=== PATIENT | female | born 1990 | race African-American/Black ===

== ENCOUNTER 2022-08-07 10:04 | Emergency (ER) | payer MEDICAID, SELFPAY ==
--- NOTE | ~2022-08-07 | US_ITS ---
EXAMINATION: US OB <=14 wk fetus w TV DATE: 08/07/2022 14:11 INDICATION: Abdominal cramping during the 11 week of TECHNIQUE: Real-time pelvic ultrasound utilizing both a transvaginal and transabdominal probe was pe rformed. The interpreting radiologist was not present for the study. COMPARISON: 08/04/2022 FINDINGS: The anteverted uterus measures 12.4 x 8.1 x 8.8 cm. There is an intrauterine gestational sac with me an sac diameter 3.0 cm. A single pole is identified. The crown rump length measures 1.2 cm, whi ch correlates with an estimated gestational age of 7 weeks and 3 days. heart motion is not iden tified on either cine grayscale imaging or M-mode Doppler. There are couple anechoic nabothian cysts at the cervix the larger measuring 9 mm. The right ovary measures 4.1 x 2.5 x 3.0 with vascular flow in the right ovary visible on color Doppl er. The left ovary not visualized. There is no free fluid in the pelvis. IMPRESSION: 1. Single intrauterine gestational sac with 1.2 cm pole without discernible heart motion which would be consistent with demise. 2. [place]-rump length corresponding to estimated gestational age by ultrasound of 7 weeks 3 day(s) +/- 4 day(s) with ultrasound estimated date of delivery (JU) of 03/20/2023. Reviewed, dictated and finalized at location A. IMPRESSION: 1. Single intrauterine gestational sac with 1.2 cm pole without discernib le heart motion which would be consistent with demise. 2. [place]-rump length corresponding to estimated gestational age by ultrasound o f 7 weeks 3 day(s) +/- 4 day(s) with ultrasound estimated date of delivery (JU ) of 03/20/2023.
[2022-08-07 10:11] VITALS: BP 142/73; PULSE 86; RESP 18; TEMP 36.8; O2SAT 100
[2022-08-07 10:26] LABS: Basophils Percent Auto 0.4 % (0.2-1.2); Eosinophils Absolute Auto 0.1 K/mm3 (0-0.3); Eosinophils Percent Auto 1.3 % (0-4.4); Hematocrit 35.4 % (37.0-47.0); Hemoglobin 11.6 g/dL (12.0-15.0); Immature Granulocyte Absolute 0.03 K/mm3 (0.00-0.031); Immature Granulocyte Percent A 0.3 % (0-0.5); Lymphocytes Absolute Auto 2.65 K/mm3 (0.9-3.2); Lymphocytes Percent Auto 25.6 % (18.3-44.2); Mean Corpuscular HGB Conc 32.8 g/dl (32-36); Mean Corpuscular Hemoglobin 28.8 pg (26-34); Mean Corpuscular Volume 87.8 fl (80-100); Mean Platelet Volume 9.7 fl (7.4-10.4); Monocytes Absolute Auto 0.7 K/mm3 (0.1-0.6); Monocytes Percent Auto 6.3 % (2.6-8.5); Neutrophils Absolute Auto 6.9 K/mm3 (1.3-6.7); Neutrophils Percent Auto 66.1 % (45.5-73.1); Platelet Count Result 214 k/mm3 (150-375); Red Blood Count 4.03 M/mm3 (4.2-5.4); Red Cell Distribution Width 13.3 % (11.5-14.5); White Blood Count 10.4 K/mm3 (4.5-10.0)
[2022-08-07 10:29] LABS: Appearance Urine Cloudy (Clear); Bacteria Urine 1+ /hpf; Bilirubin Urine Negative (Negative); Blood Urine Negative (Negative); Color Urine Yellow (Yellow); Glucose Urine UA Negative (Negative); Ketones Urine Trace mg/dL (Negative); Leukocyte Esterase Ur 1+ LEU/UL (Negative); Nitrate Urine Negative (Negative); Non Pathogenic Casts 0-2; Protein Urine Negative (Negative); RBC Urine 0-2 /hpf (0-2); Specific Grav Ur 1.026 (1.001-1.035); Squamous Epithelial Cell Urine Many /hpf (Few); Urobilinogen Urine 0.2 mg/dL (<2.0)
[2022-08-07 10:55] LABS: Add Urine Microscopic? YES
--- NOTE | 2022-08-07 11:41 | PC.NURSE ---
pt to room 20 with c/o mid abd pain that radiates to lower abd. has been having waves of pain described as small contractions. pt states she has been on google and wants it taken out of her if its not alive. pt made aware of hormone level and that we have to prove viability before proceeding with care. pt denies any vaginal discharge or bleeding. was treated for trich and chylmadia 2 weeks ago and hasnt been sexually active since.
--- NOTE | 2022-08-07 12:18 | PC.NURSE ---
unable to dopple heart tones.
--- NOTE | 2022-08-07 13:22 | ED.ABDPAIN ---
HPI - Abdominal Pain General Chief Complaint: Abdominal Pain Stated Complaint: abdominal crampinp, no bleeding, 11 weeks preg Time Seen by Provider: 08/07/22 12:03 History of Present Illness HPI narrative: Patient is a 32-year-old female G4, P3 at approximately 11 weeks presenting with abdominal cramping. Patient states that for the last 3 days she has had persistent lower abdominal cramping. States that she feels she is no longer . She denies vaginal bleeding or discharge. No dysuria, hematuria. States that she has been nauseated but no increased vomiting. No chest pain, shortness of breath, cough, diarrhea, leg swelling. Patient has not had an ultrasound for this yet. Related Data Allergies Allergy/AdvReac Type Severity Reaction Status Date / Time No Known Allergies Allergy Verified 08/08/22 08:58 Review of Systems Review of Systems: All systems reviewed & are unremarkable except as noted in HPI and below PMFSH Past Medical History Medical History Suppression of menses Surgical History Surgical History H/O wisdom tooth extraction History of carpal tunnel release of both wrists Family History Family History Mother Diabetes mellitus Hypertension Social History Social History Smoking status: Never smoker Alcohol intake: never Substance use: current Substance use type: marijuana Other substance usage details: NOT RECENTLY Living arrangements: [facility] Additional living arrangements comments: PT CURRENTLY LIVING IN A DETENTION - WILL BE RETURNING THERE AFTER SURGERY Occupation/Education: occupation Gender identity (if verbalized by the patient): Female Sexual Orientation (if Verbalized by the Patient): Straight or Heterosexual Spiritual care concerns: No Exam Narrative: GENERAL: Well-appearing, well-nourished, and in no acute distress. HEAD: Normocephalic, atraumatic. EYES: PERRLA and EOMI. ENT: Nares clear, no rhinorrhea or epistaxis. Mucous membranes moist. NECK: Supple. CHEST: Clear to auscultation. No respiratory distress. HEART: Regular rate and rhythm ABDOMEN: Soft, + suprapubic tenderness, no guarding or rebound EXTREMITIES: Normal range of motion. No edema. SKIN: Warm, dry, no rash. NEURO: No focal deficits. Alert and oriented x3. PSYCH: Normal mood and affect. Course Vital Signs Vital signs: Vital Signs Temperature 98.3 F 08/07/22 10:11 Pulse Rate 86 08/07/22 10:11 Respiratory Rate 18 08/07/22 10:11 Blood Pressure 142/73 H 08/07/22 10:11 Pulse Oximetry 100 08/07/22 10:11 Oxygen Delivery Room Air 08/07/22 10:11 Temperature 98.3 F 08/07/22 10:11 Pulse Rate 86 08/07/22 10:11 Respiratory Rate 18 08/07/22 10:11 Blood Pressure 142/73 H 08/07/22 10:11 Pulse Oximetry 100 08/07/22 10:11 Oxygen Delivery Room Air 08/07/22 10:11 MDM - Abdominal Pain MDM Narrative Medical decision making narrative: Patient is a 32-year-old female G4, P3 at approximately 11 weeks gestation presenting with abdominal cramping. Exam remarkable for the above. Blood work with mild leukocytosis and anemia. Beta hCG is appropriately elevated at 18,000. Plan for pelvic ultrasound. Pelvic ultrasound shows a gestational sac with a small pole. It is measuring approximately 7 weeks gestation. There is no discernible cardiac activity consistent with a missed . Patient left AMA from the department prior to discussion of these results. Differential Diagnosis Differential diagnosis: Likely abdominal pain, constipation and other (missed ) Lab Data 08/07/22 10:18 Labs: Lab Results 08/07/22 08/07/22 Range/Units 10:17 10:18 WBC 10.4 H (4.5-10.0) K/mm3 RBC 4.03 L
--- NOTE | 2022-08-07 14:45 | PC.NURSE ---
ultrasound to bedside for additional films.
--- NOTE | 2022-08-07 14:50 | PC.NURSE ---
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 asking for discharge papers. dr. schwartz aware. will speak with patient. waiting radiologist reading.
--- NOTE | 2022-08-07 15:00 | PC.NURSE ---
pt left ama without signing paperwork.
== END 2022-08-07 15:00 | disposition left against medical advice (07) ==
PROVIDERS: Emergency Medicine; Emergency Provider Emergency Medicine
DX: O02.1 Missed abortion (principal)
CPT/HCPCS: 36415; 76801; 76817; 81001; 84702; 85025; 85461; 86850; 86900; 86901; 87086; 99284

== ENCOUNTER 2022-08-15 03:02 | Day surgery (SDC) | payer OTHER, SELFPAY ==
[2022-08-08 08:59] VITALS: BMI 48.0
--- NOTE | 2022-08-08 09:03 | PC.NURSE ---
Report to the Outpatient Waiting Room, entrance under the green pavilion located off [facility], at time 0900 on date 08/15/22. Planned Procedure Time: 1100. Time changes happen often and if your time is changed the preop area will call you the afternoon before. - You and your visitor will be asked to self-screen and do not enter if you have any COVID symptoms. - A mask is optional within the hospital at this time. Patients may have clear liquids (water, carbonated beverages, clear teas, apple juice) until 3 hours prior to surgery with a maximum of 20 ounces. - No food from midnight until time of surgery Take the following medications with a SIP of water the morning of surgery: SERTRALINE DO NOT STOP ANY OF YOUR OTHER PRESCRIPTION MEDICATIONS PRIOR TO SURGERY ?EXCEPT THE FOLLOWING Medications to discontinue per physician: N/A Date to take last dose: N/A Please no make-up, nail hungarian, hairspray, perfume, deodorant, or body powder the day of surgery. No jewelry (including any body piercings) or valuables the day of surgery, leave them at home. Please take a shower or bath the night before, or the morning of, surgery with an antibacterial soap. Wear comfortable, loose fitting clothing. - Jewelry must be removed prior to entering the operating room. Rings and piercings that are not removed may be cut off. - The hospital will not accept responsibility for valuables. - Please leave all valuables, including medications, at home the day of surgery. If you are going home after surgery, a licensed regional otr company driver must drive you home. - NO public transportation without another adult if you receive anesthesia. - We recommend that an adult stay with you for 24 hours following discharge. - We also recommend that you do not drive, make important decision, drink alcoholic beverages, or take any drugs that were not prescribed by your health care provider for at least 24 hours after your discharge time. Follow any additional instructions given to you from your surgeon. If you or anyone in your household have experienced Covid symptoms in the past week, please notify your surgeon or the nurse liaison at the phone number below for possible testing. Telephone instructions given to PT - HEAVEN HEDRICK and asked if any additional questions and then verbalized understanding. Patient advised to call surgeon office or pre surgery nurse liaison [phone] if any additional questions.
--- NOTE | 2022-08-14 11:54 | PM.IMHP ---
H&P: HPI History of Present Illness Date/Time: 08/14/22 11:54 Chief Complaint: spontaneous missed Narrative: 32-year-old who presents for suction D&C for missed . Patient presented to the emergency room with complaints of pelvic pain and cramping. Patient had a pelvic ultrasound that showed intrauterine with no cardiac activity. Patient should have been 11 weeks by LMP and coronal length with measurements 7 weeks. Patient elected for surgical management Review of Systems Review of Systems: All systems reviewed & are unremarkable except as noted in HPI and below PMFSH Past Medical History Medical History Suppression of menses Surgical History Surgical History H/O wisdom tooth extraction History of carpal tunnel release of both wrists Family History Family History Mother Diabetes mellitus Hypertension Social History Social History Smoking status: Never smoker Alcohol intake: never Substance use: current Substance use type: marijuana Other substance usage details: NOT RECENTLY Living arrangements: snf Additional living arrangements comments: PT CURRENTLY LIVING IN A SNF - WILL BE RETURNING THERE AFTER SURGERY Occupation/Education: occupation Gender identity (if verbalized by the patient): Female Sexual Orientation (if Verbalized by the Patient): Straight or Heterosexual Spiritual care concerns: No Meds Home Medications and Allergies Home Medications Medication Instructions Recorded Confirmed Type sertraline 100 mg tablet 100 mg PO DAILY #30 tabs 07/31/22 08/08/22 Rx Allergies Allergy/AdvReac Type Severity Reaction Status Date / Time No Known Allergies Allergy Verified 08/08/22 08:58 Exam Const: General: comfortable and no acute distress Resp: Effort & Inspection: normal respiratory effort Auscultation: clear to auscultation bilaterally Cardio: Rate: regular rate Rhythm: regular rhythm GI: Inspection: non-distended GI Palp: Yes Soft to palpation, No Tenderness to palpation present (GI) and No Guarding due to palpation present (GI) Auscultation: normal bowel sounds : External Female Exam: normal external appearance Speculum Exam - Vagina: normal appearance of the vagina Speculum Exam - Cervix: normal appearance of the cervix, Cervical os closed, Abnormal cervical discharge present and nontender Bimanual exam- vagina & uterus: normal bimanual exam, No Cervical tenderness present and non-tender Bimanual Exam- Adnexa, other: normal adnexae OB/external & speculum: no bleeding Skin: General skin exam: normal color Neuro: General: gait normal Speech: normal speech Extrem: General: normal to inspection Psych: Mental Status: mental status grossly normal Affect: normal affect Assessment and Plan Assessment and plan (1) Missed : Code(s): O02.1 - Missed Status: Inactive Assessment and Plan: 32-year-old who presents for suction D&C for missed Patient had pelvic ultrasound showed a pole with no cardiac activity. pole was measuring over 7 weeks. Patient suspected to be 11 weeks by LMP Patient remained asymptomatic Patient counseled on management options including observation versus medical versus surgical management Patient elects for surgical management via suction D&C Will plan for doxycycline pre and postop
--- NOTE | 2022-08-14 13:33 | P.PNAN_ITS ---
Anes - Initial Pre Proc Eval Procedure: Operation Date: 08/15/22 11:00 Proposed Procedures p Suction Dilation and Curettage - Benigno Orlando MD Date/Time: 08/14/22 13:33 Surgeon: Benigno Orlando MD Pre Op Diagnosis: missed ab Patient Data Age: 32 Gender: F Height: 1.59 m Weight: 121.11 kg Allergies Allergy/AdvReac Type Severity Reaction Status Date / Time No Known Allergies Allergy Verified 08/15/22 09:52 Home Medications Medication Instructions Recorded Confirmed Type sertraline 100 mg tablet 100 mg PO DAILY #30 tabs 07/31/22 08/08/22 Rx Patient hx anesthesia problems: none Family hx anesthesia problems: none Results Review: All pre-operative results and documents have been reviewed as part of the pre- operative evaluation. [facility] Past Medical History Medical History (Updated 08/14/22 @ 13:34 by Davi Whittaker MD) Depression Morbid obesity with BMI of 45.0-49.9, adult Suppression of menses Surgical History Surgical History H/O wisdom tooth extraction History of carpal tunnel release of both wrists Family History Family History Mother Diabetes mellitus Hypertension Social History Social History Smoking status: Never smoker Alcohol intake: never Substance use: current Substance use type: marijuana Other substance usage details: NOT RECENTLY Living arrangements: senior care Additional living arrangements comments: PT CURRENTLY LIVING IN A CARE HOME - WILL BE RETURNING THERE AFTER SURGERY Occupation/Education: occupation Gender identity (if verbalized by the patient): Female Sexual Orientation (if Verbalized by the Patient): Straight or Heterosexual Spiritual care concerns: No Anes - Eval Final PreProcedure Day of Procedure 08/14/22 13:33 Patient weight: morbidly obese Heart: regular rate and rhythm Lungs: clear to auscultation and normal air movement Airway: Mallampati scale class II Neurological: alert and oriented Last oral intake: >/= 8 hours ASA classification: III Emergent: no Anesthetic plan: proceed Anesthesia type and monitoring: general LMA Results Review: All pre-operative results and documents have been reviewed as part of the pre- operative evaluation. Informed Consent: The patient's anesthetic plan and its attendant risks and benefits were discussed with the patient/family/POA. Questions were solicited and answers provided to the satisfaction of the patient/family/POA.
[2022-08-15] MEDS: ACETAMINOPHEN 500 MG TABLET 1000 MG PO (10:09)
--- NOTE | 2022-08-15 10:21 | WPDHPUPDATE1 ---
History and Physical Update Update Date/Time: 08/15/22 10:21 History and Physical has been reviewed, including an updated exam of the patient. There are NO changes in the patient's condition. Risks, benefits, and alternatives have been discussed and questions answered. Patient agrees to proceed with procedure.
[2022-08-15 10:31] VITALS: BP 134/76; PULSE 71; RESP 16; TEMP 36.3; O2SAT 100
[2022-08-15] MEDS: LACTATED RINGERS 1,000 ML 30 ML IV CONT (10:44)
[2022-08-15] MEDS: DOXYCYCLINE 100 MG/NS 100 ML 100 MG/100 ML BAG IVPB (10:49)
--- NOTE | 2022-08-15 12:32 | W.PM.PROC2 ---
Procedure Note - Detailed Date of Procedure 08/15/22 Pre-op Diagnosis missed ab Post-op Diagnosis Same Procedure Performed Suction Dilation & curettage Surgeon Benigno Orlando MD Anesthesia General Indications spontaneous missed on pelvic US Findings intrauterine products of conception Description of Procedure The patient was taken to the operating room after a missed had been noted on on transvaginal ultrasound. The risks, benefits and alternatives of the procedure were reviewed with the patient and informed consent was obtained. The patient was taken to the OR and anesthesia was noted to be adequate. The patient was placed in the dorsolithotomy position. Pelvic exam was performed with findings noted above. The patient was prepped and draped in the usual sterile fashion. Sterile speculum was placed in the vagina and the cervix was grasped with a tenaculum. The cervix was dilated further to allow for passage of a 8 mm suction curette. The 8 mm suction curette was gently advanced to the fundus, suction was activated, and the tip was rotated while being withdrawn to clear the uterus of products. This suction process was repeated 3 additional times due to the quantity of material in the uterus. The sharp curette was introduced and advanced to the fundus to remove any remaining products. The suction curette was reintroduced one final time to ensure all products had been removed. The tenaculum was removed. Good hemostasis was noted. Instrument, sponge, and sharp counts were correct. Patient tolerated the procedure well and was taken to the recovery room in stable condition. Estimated Blood Loss 50 Urine Output 100 Drains No Packing No Pathology Yes (Products of conception) Complications No immediate complications Condition Stable Disposition PACU [facility] Billing Surgery - Charge Forward: Surgery Billing
[2022-08-15 12:36] VITALS: BP 114/67; PULSE 79; RESP 16; O2SAT 96
[2022-08-15 13:05] VITALS: BP 126/64; PULSE 74; RESP 16
== END 2022-08-15 13:50 | disposition home or self-care (01) ==
PROVIDERS: Visit Provider Student in an Organized Health Care Education/Training Program
PROC: (CPT 59820; principal; 2022-08-15 11:00)
DX: O02.1 Missed abortion (principal); F32.A Depression, unspecified; F12.90 Cannabis use, unspecified, uncomplicated
CPT/HCPCS: 59820; 88305; A9270; J1885; J2250; J2405; J2704; J3010; J7120